=== PATIENT | male | born 1940 | race Caucasian/White ===

== ENCOUNTER 2018-03-22 16:55 | Inpatient (IN) | payer OTHER ==
[~2018-03-22] VITALS: Ht 165.1 cm; Wt 66.2 kg
[~2018-03-22 16:55] MED LIST: ASA81 MG PO; ATACAND32 MG PO; DITROPAN XL10 MG PO; METFORMIN HCL500 MG PO; OMEPRAZOLE40 MG PO; SIMVASTATIN20 MG PO; VERAPAMIL ER180 MG PO
[2018-03-31] MEDS ORDERED: GABAPENTIN800 MG PO (07:57)
[2018-03-31] MEDS ORDERED: DOCUSATE SODIU100 MG PO (07:58)
[2018-03-31] MEDS ORDERED: AMOX-CLAV 875-1 EACH PO (07:58)
[2018-03-31] MEDS ORDERED: PERCOCET 5-3251 EACH PO (07:59)
[2018-03-31] MEDS ORDERED: CLONAZEPAM1 MG PO (07:59)
== END 2018-03-31 13:47 | disposition home or self-care (01) | DRG 455 ==
LOC: SURG 03-23 12:00 → PED 03-30 04:30 → O/R 03-30 04:30 → SURG 03-30 10:00 → PED 03-30 12:29
PROVIDERS: Orthopaedic Surgery Orthopaedic Surgery of the Spine
PROC: 0SG0071 Fusion of Lumbar Vertebral Joint with Autologous Tissue Substitute, Posterior Approach, Posterior Column, Open Approach (ICD-10-PCS; 2018-03-30)
PROC: 0ST20ZZ Resection of Lumbar Vertebral Disc, Open Approach (ICD-10-PCS; 2018-03-30)
PROC: 0SG00AJ Fusion of Lumbar Vertebral Joint with Interbody Fusion Device, Posterior Approach, Anterior Column, Open Approach (ICD-10-PCS; 2018-03-30)
PROC: 07DS3ZZ Extraction of Vertebral Bone Marrow, Percutaneous Approach (ICD-10-PCS; 2018-03-30)
PROC: 0SG00A0 Fusion of Lumbar Vertebral Joint with Interbody Fusion Device, Anterior Approach, Anterior Column, Open Approach (ICD-10-PCS; principal; 2018-03-30 10:00)
DX: M48.061 Spinal stenosis, lumbar region without neurogenic claudication (principal); M51.16 Intervertebral disc disorders with radiculopathy, lumbar region; M43.16 Spondylolisthesis, lumbar region; E11.9 Type 2 diabetes mellitus without complications; I10 Essential (primary) hypertension

== ENCOUNTER 2022-01-15 11:53 | Inpatient (IN) | payer OTHER ==
[~2022-01-15] VITALS: Ht 165.1 cm; Wt 69.9 kg
[~2022-01-15 11:53] MED LIST changes: +AMOX-CLAV 875-1 EACH PO; +CLONAZEPAM1 MG PO; +DOCUSATE SODIU100 MG PO; +GABAPENTIN800 MG PO; +PERCOCET 5-3251 EACH PO
[2022-01-15] MEDS ORDERED: CARBIDOPA-LEVO1 EAC1 PO (13:42)
[2022-01-15] MEDS ORDERED: VERELAN180 MG PO (13:43)
[2022-01-15] MEDS ORDERED: ALLO PO (13:45)
[2022-01-15] MEDS ORDERED: [UNRECOGNIZED DRUG - CODE] PO (13:51)
[2022-01-15] MEDS ORDERED: CARBIDOPA-LEVO1 EAC4 PO (13:52)
[2022-01-20] MEDS ORDERED: NEURONTIN800 MG PO (13:41)
[2022-01-20] MEDS ORDERED: MEDROLPACK PO (13:41)
[2022-01-20] MEDS ORDERED: PERCOCET 5-3251 EACH PO (13:41)
[2022-01-20] MEDS ORDERED: COLACE100 MG PO (13:41)
[2022-01-20] MEDS ORDERED: AMOX-CLAV 875-1 EACH PO (13:41)
== END 2022-01-22 17:00 | DRG 455 ==
LOC: O/R 01-20 06:50 → SURG 01-20 10:45 → SURH 01-20 18:00
PROVIDERS: ADMIT Orthopaedic Surgery Orthopaedic Surgery of the Spine; ATTEND Orthopaedic Surgery Orthopaedic Surgery of the Spine
PROC: 0SG0071 Fusion of Lumbar Vertebral Joint with Autologous Tissue Substitute, Posterior Approach, Posterior Column, Open Approach (ICD-10-PCS; 2022-01-20)
PROC: 0SP004Z Removal of Internal Fixation Device from Lumbar Vertebral Joint, Open Approach (ICD-10-PCS; 2022-01-20)
PROC: 0ST20ZZ Resection of Lumbar Vertebral Disc, Open Approach (ICD-10-PCS; 2022-01-20)
PROC: 0QB20ZZ Excision of Right Pelvic Bone, Open Approach (ICD-10-PCS; 2022-01-20)
PROC: 07DR0ZZ Extraction of Iliac Bone Marrow, Open Approach (ICD-10-PCS; 2022-01-20)
PROC: 0SG00A0 Fusion of Lumbar Vertebral Joint with Interbody Fusion Device, Anterior Approach, Anterior Column, Open Approach (ICD-10-PCS; principal; 2022-01-20 10:45)
DX: M48.062 Spinal stenosis, lumbar region with neurogenic claudication (principal); M41.86 Other forms of scoliosis, lumbar region; M51.36 Other intervertebral disc degeneration, lumbar region; T84.226D Displacement of internal fixation device of vertebrae, subsequent encounter; I10 Essential (primary) hypertension; E11.9 Type 2 diabetes mellitus without complications; G20 Parkinson's disease